=== PATIENT | male | born 1955 | race African-American/Black ===

== ENCOUNTER 2017-12-22 12:06 | Inpatient (IN) | payer MEDICARE, OTHER ==
[~2017-12-22] VITALS: Ht 182.9 cm; Wt 125.2 kg
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
[2017-12-22 12:28] LABS: BASOPHILS # (AUTO) 0.1 /CMM (0.0-0.2); BASOPHILS % (AUTO) 0.7 % (0.0-2.0); EOSINOPHILS % (AUTO) 1.8 % (0.0-6.0); HEMATOCRIT 31 % (39-51); HEMOGLOBIN 10.1 g/dL (13.5-17.5); LYMPHOCYTES # (AUTO) 1.3 /CMM (0.8-4.8); LYMPHOCYTES % (AUTO) 15.7 % (20.0-44.0); MEAN CORPUSCULAR HGB CONC 32 g/dl (31.0-36.0); MEAN CORPUSCULAR VOLUME 75 fL (80-96); MONOCYTES # (AUTO) 0.8 /CMM (0.1-1.30); MONOCYTES % (AUTO) 10.1 % (2.0-12.0); NEUTROPHILS # (AUTO) 5.8 /CMM (1.8-8.9); NEUTROPHILS % (AUTO) 71.7 % (43.0-81.0); PLATELET COUNT (AUTO) 355 /CMM (150-450); RDW COEFFICIENT OF VARIATION 15.4 (11.5-15.0); RED BLOOD CELL COUNT(AUTO) 4.14 MIL/uL (4.5-6.0); WHITE BLOOD COUNT (AUTO) 8.1 K/uL (4.3-11.0)
[2017-12-22] MEDS ORDERED: FUROSEMIDE 40 MG/4 ML VIAL ONE (12:29)
[2017-12-22] MEDS ORDERED: FUROSEMIDE 40 MG/4 ML VIAL IV ONE (12:30)
[2017-12-22 12:39] LABS: CALCIUM, SERUM 8.4 mg/dL (8.5-10.1); CREATININE 1.2 mg/dL (0.6-1.3); POTASSIUM 3.3 mmol/L (3.5-5.1)
[2017-12-22 12:42] LABS: INR 1.17 (0.85-1.15)
[2017-12-22 12:46] LABS: TROPONIN I 0.029 ng/mL (0.00-0.056)
[2017-12-22 12:51] LABS: ALBUMIN 3.1 g/dL (3.4-5.0); BILIRUBIN,DIRECT 0.5 mg/dL (0.0-0.2); BILIRUBIN,TOTAL 1.3 mg/dL (0.2-1.0); TOTAL PROTEIN, SERUM 6.6 g/dL (6.4-8.2)
--- NOTE | 2017-12-22 13:01 | NUR ---
CALLED NURSING ORGANIC CHEMISTRY PROFESSOR AND REQUESTED A TELE RM FOR THIS PT.
--- NOTE | 2017-12-22 13:04 | NUR ---
[facility]ED [facility] CALL AND UBALDO HUNG WAS PAGED.
--- NOTE | 2017-12-22 13:58 | NUR ---
REPORT GIVEN TO JUAN WAGNER FOR [facility] TELE [phone]
--- NOTE | 2017-12-22 14:00 | NUR ---
ADMISSION NOTE RECEIVED PT. PT IS STABLE AND RESTING IN BED. PT BREATHING IS LABORED WITH RR AT 20 BUT O2 SAT WNL. NO C/O PAIN AT THIS TIME. PT MEDICATION CHECKED INTO PHARMACY, RECEIPT LEFT IN CHART. BELONGINGS CHECKED IN WELL. IV ACCESS LOCATED ON LEFT HAND, 22G SL. SAFETY MEASURES IN PLACE, CALL LIGHT WITHIN REACH, WILL CONTINUE TO MONITOR.
[2017-12-22 15:25] VITALS: BP 147/89
[2017-12-22 16:00] VITALS: BP 147/89
[2017-12-22] MEDS ORDERED: MAG HYDROX/AL HYDROX/SIMETH 30 ML UDC PO PRN (16:00)
[2017-12-22] MEDS ORDERED: Z GUARD REMEDY 2 OZ OINT TP PRN (16:00)
[2017-12-22] MEDS ORDERED: MAGNESIUM HYDROXIDE 30 ML UDC PO PRN (16:00)
[2017-12-22] MEDS ORDERED: ONDANSETRON HCL/PF 4 MG/2 ML VIAL IVP PRN (16:00)
[2017-12-22] MEDS ORDERED: ACETAMINOPHEN 325 MG TABLET PO PRN (16:00)
[2017-12-22] MEDS ORDERED: BUMETANIDE INJ 6 MG in IV NS 0.9% 36 ML IV ONE (16:00)
[2017-12-22] MEDS ORDERED: POTASSIUM CHLORIDE 20 MEQ TAB.PRT.SR PO ONE ×2 (17:00→22:00)
--- NOTE | 2017-12-22 18:27 | NUR ---
RN CLOSING NOTE PT IN BED RESTING. A/OX4. RESPIRATIONS REMAIN SOMEWHAT LABORED, O2 SAT WNL. PT IS ON O2 2L VIA NC. ALL PT NEEDS ANTICIPATED AND MET, SAFETY MEASURES IN PLACE, CALL LIGHT WITHIN REACH. WILL CONTINUE TO MONITOR.
--- NOTE | 2017-12-22 19:25 | NUR ---
OYSTER CULLER OPENING NOTES: RECEIVED PT IN BED AND IS AWAKE AND LAYING IN BED. PT ON 2LPM VIA NC. PT BEING INFUSED WITH BUMEX AND 10ML/HR. CALL LIGHT WITHIN PT'S REACH. BED KEPT IN LOW, LOCKED POSITION, AND SIDE RAILS X 2UP. PT REFUSING TO HAVE TELE BOX APPLIED. WILL CONTINUE TO MONITOR PT.
[2017-12-22 20:00] VITALS: BP 127/79
--- NOTE | 2017-12-22 22:53 | NUR ---
GENOMICS SCIENTIST NOTES: PT PULLED OUT IV BY ACCIDENT WHILE ASLEEP. BLEEDING NOTED. APPLIED PRESSURE AND ELEVATED L HAND. STARTED NEW IV ON R HAND #22G. CONNECTED PT BACK TO BUMEX IV. EXPLAINED TO PT TO BE CAUTIOUS AND CALL FOR ASSISTANCE PRN. EXPLAINED TO PT THAT PUMPER GAGER APPRENTICE WILL SEE HIM WELL TOMORROW AND TO NOT HAVE ANYTHING TO EAT OR DRINK PAST MIDNIGHT. PT UNDERSTOOD.
[2017-12-23] VITALS: BP 133/85
[2017-12-23] MEDS: ZOLPIDEM TARTRATE 5 MG TABLET PO PRN (00:31)
--- NOTE | 2017-12-23 00:33 | NUR ---
MEDIA PRODUCTION SUPPORT MANAGER NOTES: PT REQUESTED FOR SLEEPING AID. PT WAS ADMINISTERED AMBIEN 5MG PO. WILL CONTINUE TO MONITOR PT.
[2017-12-23 04:00] VITALS: BP 128/70
--- NOTE | 2017-12-23 05:08 | NUR ---
SUPERVISOR MACHINE WORKERS NOTES: PT VERY NON COMPLIANT. PT KEEPS REMOVING GOWN AND APPEARING NAKED IN ROOM. PROVIDED 6TH GOWN. PT KEEPS SAYING HE IS GOING TO LEAVE. EXPLAINED TO PT THAT HE IS TO BE SEEN BY THE DOCTORS TOMORROW. PT REMOVED TELE BOX AND REFUSING TO BE PUT ON. CHARGE NURSE AWARE.
--- NOTE | 2017-12-23 05:10 | NUR ---
DIRECT SUPPORT PROFESSIONAL NOTES: EXPLAINED TO PT MULTIPLE TIMES ABOUT FLUID RESTRICTION BUT PT KEEPS CREATING A SCENE. PT WALKS OUT OF ROOM ASKING FOR THINGS, TAKING OFF GOWN, TAKING OFF TELE BOX. PT VERY NONCOMPLIANT.
--- NOTE | 2017-12-23 06:28 | NUR ---
BUSINESS INFORMATION CONSULTANT NOTES; PT FOUND WITH IV PULLED OUT. PT CLAIMS TO SAY HE DID NOT PULL IT OUT.
--- NOTE | 2017-12-23 06:45 | NUR ---
BLEACHER LARD CLOSING NOTES: ALL NEEDS WERE ATTENDED AND ANTICIPATED FOR. NEW IV STARTED ON L HAND 22#G AND IS PATENT AND INTACT. WRAPPED KERLIX. INFORMED PT TO BE CAUTIOUS ABOUT NEW IV SITE AND NOT TO PULL IT OUT. PT ASLEEP AT THIS TIME AND ON ROOM AIR. FROM TIME TO TIME, PT REMOVED NASAL CANNULA BUT OK WITHOUT IT. PT ON TELE BOX AND READING SHOWS SR 90. CALL LIGHT WITHIN PT'S REACH. BED KEPT IN LOW, LOCKED POSITION, AND SIDE RAILS X 2UP. WILL ENDORSE TO AM NURSE FOR TAO.
[2017-12-23 07:35] LABS: BASOPHILS % (AUTO) 0.1 % (0.0-2.0); EOSINOPHILS % (AUTO) 1.9 % (0.0-6.0); HEMATOCRIT 33 % (39-51); HEMOGLOBIN 10.4 g/dL (13.5-17.5); LYMPHOCYTES # (AUTO) 1.4 /CMM (0.8-4.8); LYMPHOCYTES % (AUTO) 16.6 % (20.0-44.0); MEAN CORPUSCULAR HGB CONC 31 g/dl (31.0-36.0); MEAN CORPUSCULAR VOLUME 76 fL (80-96); MONOCYTES # (AUTO) 0.7 /CMM (0.1-1.30); MONOCYTES % (AUTO) 8.7 % (2.0-12.0); NEUTROPHILS # (AUTO) 6.2 /CMM (1.8-8.9); NEUTROPHILS % (AUTO) 72.7 % (43.0-81.0); PLATELET COUNT (AUTO) 363 /CMM (150-450); RDW COEFFICIENT OF VARIATION 16.6 (11.5-15.0); RED BLOOD CELL COUNT(AUTO) 4.42 MIL/uL (4.5-6.0); WHITE BLOOD COUNT (AUTO) 8.5 K/uL (4.3-11.0)
--- NOTE | 2017-12-23 07:38 | NUR ---
tele mail messenger: cardio consult seen and examined by dr. chua with new orders. orders acknowledged.
[2017-12-23 07:51] LABS: BILIRUBIN,TOTAL 1.4 mg/dL (0.2-1.0); CALCIUM, SERUM 8.9 mg/dL (8.5-10.1); CREATININE 1.1 mg/dL (0.6-1.3); MAGNESIUM 2.4 mg/dL (1.8-2.4); PHOSPHORUS 2.9 mg/dL (2.5-4.9); POTASSIUM 3.4 mmol/L (3.5-5.1); TOTAL PROTEIN, SERUM 6.7 g/dL (6.4-8.2)
[2017-12-23 08:00] VITALS: BP 146/94
[2017-12-23] MEDS ORDERED: BUMETANIDE INJ 8 MG in IV NS 0.9% 48 ML IV ONE (08:00)
[2017-12-23 08:03] LABS: THYROID STIMULATING HORMONE 1.464 uIU/mL (0.358-3.74)
[2017-12-23 08:35] LABS: MAGNESIUM 1.8 mg/dL (1.8-2.4); PHOSPHORUS 2.9 mg/dL (2.5-4.9); THYROID STIMULATING HORMONE 1.454 uIU/mL (0.358-3.74)
--- NOTE | 2017-12-23 08:44 | NUR ---
tele delivery driver assistant: notes started on bumex at 10ml/hr by rn at this time. will continue to monitor.
[2017-12-23] MEDS ORDERED: ASPI-1152 PO (08:50)
[2017-12-23] MEDS ORDERED: POTA10TA15 PO (08:50)
[2017-12-23] MEDS ORDERED: LISI40TA4 PO (08:50)
[2017-12-23] MEDS ORDERED: CLOP75TA15 PO (08:50)
[2017-12-23] MEDS ORDERED: INSU100I30 SQ (08:50)
[2017-12-23] MEDS ORDERED: BUSP10TA35 PO (08:50)
[2017-12-23] MEDS ORDERED: SPIR25TA PO (08:50)
[2017-12-23] MEDS ORDERED: METF-442 PO (08:50)
[2017-12-23] MEDS ORDERED: FURO40TA5 PO (08:50)
[2017-12-23] MEDS ORDERED: ALPR2TAB2 PO (08:50)
[2017-12-23] MEDS ORDERED: ATOR40TA PO (08:50)
[2017-12-23] MEDS ORDERED: ISOS60TA4 PO (08:50)
[2017-12-23] MEDS ORDERED: GABA-536 PO (08:50)
[2017-12-23] MEDS ORDERED: FOLI1TAB16 PO (08:50)
[2017-12-23] MEDS ORDERED: CARV6.25 PO (08:50)
[2017-12-23] MEDS: LOSARTAN POTASSIUM 50 MG TABLET PO SCH (09:42)
[2017-12-23] MEDS: CARVEDILOL 3.125 MG TABLET PO SCH ×2 (09:42→20:28)
[2017-12-23] MEDS: ENOXAPARIN SODIUM 40 MG/0.4 ML DISP.SYRIN SQ SCH (09:44)
[2017-12-23] MEDS ORDERED: POTASSIUM CHLORIDE 20 MEQ TAB.PRT.SR PO SCH (10:00)
--- NOTE | 2017-12-23 10:00 | NUR ---
tele railroad signal technician: notes pt asking for more foods. snacks provided. instructed to call for assistance. will continue to monitor.
--- NOTE | 2017-12-23 13:00 | NUR ---
m/s supervisor painting shipyard: md visit seen by dr. martinez at this time. reminded md re: pt's home meds hasn't been reconciled yet.
--- NOTE | 2017-12-23 14:00 | NUR ---
m/s senior c software engineer: notes pt still hungry and wants more food. snacks provided. pt easily irritated when he doesn't get what he wants. emotional support rendered. 1:1 intervention provided prn.
--- NOTE | 2017-12-23 15:15 | NUR ---
m/s info analyst: notes pt called and insisted that he wants to have an electric chair when he gets discharge. informed pt that i will let case management know re: his request. ashanti (case management) notified and made aware, stated, "i will see him after the meeting and talk to him."
[2017-12-23 16:00] VITALS: BP 144/97
--- NOTE | 2017-12-23 16:00 | NUR ---
m/s cooker meal: notes f/u made to ashanti (neymar) re: pt's request for electric wheelchair, stated, "i don't think he qualifies, but i will talk to him." pt made aware. also f/u made to dr. martinez re: home medications hasn't been reconciled yet. will continue to monitor.
[2017-12-23] MEDS: oxyCODONE IR immediate release 5 MG PO PRN (18:32)
--- NOTE | 2017-12-23 18:32 | NUR ---
m/s taker away: notes c/o 05/11 leonie leg pain, medicated with oxy ir 15mg po as ordered. pt still insisting that he qualifies for electric wheelchair and demanded to talk to case management. informed pt that case management is aware of request and will f/u tomorrow. pt easily irritated. instructed to call for assistance. will continue to monitor.
--- NOTE | 2017-12-23 19:10 | NUR ---
m/s deputy chief executive: notes report given to jose angel (jasiel) for continuity of care.
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
--- NOTE | 2017-12-23 19:58 | NUR ---
RECIEVED MR CHA ALERT AND ORIENTATED. VERBALIZES HIS NEEDS. HIS ONLY REQUISTE WAS THAT I SPEAK TO SOME ONE ABOUT GETTING HIS ELECTRIC WHEELCHAIR. DAY SHIFT NURSE STATED THE REQUISTE WAS PLACED BUT NO ONE HAS SEN HIM REGARDING THIS.
[2017-12-23 20:00] VITALS: BP 122/72
[2017-12-23 20:08] VITALS: BP 122/72
--- NOTE | 2017-12-24 04:54 | NUR ---
CLOSING NOTES: ALERT AND ORIENTATED, SPEECH CLEAR, VERBALIZES HIS NEEDS. HIS CONCERN IS HE WANTS THE DOCTOR TO ORDER HM AN ELECTRIC WHEELCHAIR. SOCIAL SERVICE AWARE OF HIS REQUISTE. LARGE SNACK CONSUMED 100%. AMBULATED TO THE BATHROOM VOIDED, REFUSING THE ASSIST OF THE NURSE. STATES "I CAN DO IT'. NO SOB WITH AMBULATING TO THE BATHROOM, OR WHEN ASLEEP, LUNGS CLEAR VIA AUSCULTATION
[2017-12-24 07:19] LABS: EOSINOPHILS % (AUTO) 2.4 % (0.0-6.0); HEMATOCRIT 34 % (39-51); HEMOGLOBIN 10.4 g/dL (13.5-17.5); LYMPHOCYTES # (AUTO) 1.9 /CMM (0.8-4.8); LYMPHOCYTES % (AUTO) 21.3 % (20.0-44.0); MEAN CORPUSCULAR HGB CONC 31 g/dl (31.0-36.0); MEAN CORPUSCULAR VOLUME 76 fL (80-96); MONOCYTES # (AUTO) 0.8 /CMM (0.1-1.30); MONOCYTES % (AUTO) 9.4 % (2.0-12.0); NEUTROPHILS % (AUTO) 66.9 % (43.0-81.0); PLATELET COUNT (AUTO) 367 /CMM (150-450); RDW COEFFICIENT OF VARIATION 16.5 (11.5-15.0); RED BLOOD CELL COUNT(AUTO) 4.39 MIL/uL (4.5-6.0); WHITE BLOOD COUNT (AUTO) 8.9 K/uL (4.3-11.0)
[2017-12-24 07:24] LABS: CALCIUM, SERUM 8.5 mg/dL (8.5-10.1); CREATININE 1.3 mg/dL (0.6-1.3); MAGNESIUM 1.9 mg/dL (1.8-2.4); PHOSPHORUS 3.6 mg/dL (2.5-4.9); POTASSIUM 3.1 mmol/L (3.5-5.1)
[2017-12-24 08:00] VITALS: BP 148/98
--- NOTE | 2017-12-24 08:00 | NUR ---
MS RN RECEIVED ON BED,AWAKE,ALERT,ORIENTED X3, NOT IN ANY FORM OF DISTRESS, RESPIRATIONS EVEN AND UNLABORED,NO SOB NOTED, DENIES PAIN AT THIS TIME, WILL MONITOR PATIENT'S CONDITION.
[2017-12-24] MEDS ORDERED: FUROSEMIDE 40 MG TABLET PO SCH (09:00)
[2017-12-24] MEDS: CARVEDILOL 3.125 MG TABLET PO SCH ×2 (09:00→21:12)
[2017-12-24] MEDS ORDERED: BUMETANIDE INJ 8 MG in IV NS 0.9% 48 ML IV ONE (09:00)
--- NOTE | 2017-12-24 09:00 | NUR ---
MS MARTINEZ BREAKFAST SERVED,DUE MEDS GIVEN,TOLERATED WELL.
[2017-12-24] MEDS: ASPIRIN EC 81 MG TABLET.DR PO SCH (09:20)
[2017-12-24] MEDS: POTASSIUM CHLORIDE 20 MEQ TAB.PRT.SR PO SCH ×3 (09:21→17:52)
[2017-12-24] MEDS: busPIRone 5 MG TABLET PO SCH (09:21)
[2017-12-24] MEDS: CLOPIDOGREL BISULFATE 75 MG TABLET PO SCH (09:21)
[2017-12-24] MEDS: FOLIC ACID 1 MG TABLET PO SCH (09:21)
[2017-12-24] MEDS: LOSARTAN POTASSIUM 50 MG TABLET PO SCH (09:22)
[2017-12-24] MEDS: ENOXAPARIN SODIUM 40 MG/0.4 ML DISP.SYRIN SQ SCH (09:28)
--- NOTE | 2017-12-24 11:00 | NUR ---
MS RN PATIENT REMOVED IV ACCIDENTALLY,NEW IV AT LEFT HAND G 22 INSERTED W/ GOOD VENOUS RETURN.
[2017-12-24] MEDS: CARVEDILOL 6.25 MG TABLET PO SCH ×2 (14:07→17:52)
[2017-12-24 16:00] VITALS: BP 132/74
--- NOTE | 2017-12-24 16:00 | NUR ---
MS RN PATIENT REMOVED IV AGAIN, NEW ONE INSERTED AT LEFT HAND G 22.
--- NOTE | 2017-12-24 18:26 | NUR ---
MS RN CALLED UBALDO ABOUT THE FERLICIT, WAS CALLED EARLIER TO [place], STILL NOT HERE.
--- NOTE | 2017-12-24 18:26 | NUR ---
MS RN ON BED, NO DISTRESS NOTED.
--- NOTE | 2017-12-24 19:30 | NUR ---
MS/ASSEMBLER ADJUSTER; RECEIVED PT IN BED AWAKE, ALERT AND VERBALLY RESPONSIVE. BREATHINGF
--- NOTE | 2017-12-24 19:30 | NUR ---
MS/COMPUTED TOMOGRAPHY TECHNOLOGIST; RECEIVED PT IN BED AWAKE, ALERT AND ORIENTED X 3-4. BREATHING NON LABORED. DENIES PAIN. HL INTACT ON LT HAND WITH BUMEX IV ON PROGRESS. BED ON LOWER POSITION AND LOCKED FOR SAFETY. SIDE RAILS X2 UPPER PART OF BED ARE UP FOR SAFETY. PT REMINDED MUST CALL FOR HELP WHEN HE WANTS TO GO TO THE BATHROOM . CALL LIGHT AND URINAL WITHIN REACH. DENIES PAIN. WILL CONTINUE TO MONITOR.
[2017-12-24 20:00] VITALS: BP 116/69
[2017-12-24] MEDS: GABAPENTIN 400 MG CAPSULE PO SCH (21:44)
[2017-12-24] MEDS: ATORVASTATIN 40 MG TABLET PO SCH (21:44)
[2017-12-24] MEDS: SOD FERRIC GLUC 125 MG in IV NS 0.9% 100 ML IV SCH (22:28)
[2017-12-24] MEDS: ZOLPIDEM TARTRATE 5 MG TABLET PO PRN (22:30)
--- NOTE | 2017-12-25 01:20 | NUR ---
MS/STREET SWEEPER; NOTED PT GOT OUT OF BED AND WALKED TOWARDS THE HIS ROOM DOOR AND SAYING I WANT TO LEAVE A MESSAGE APPROACHED BY THE ENDS DOWN CHECKER. PT ASSISTED THE PT TO HIS BED , BED LINENS CHANGED.
--- NOTE | 2017-12-25 01:30 | NUR ---
MS/CORE DROPPER; NOTED HL IS OUT / PT PULLED OUT. NEW HL INSERTED ANGIO CATH # 22. WRAPPED WITH KERLIX AND PT REMINDED NOT TO REMOVE IT. AT THIS TIME PT IN BED. NOTED PT APPEARED LIKE CONFUSED TALKING TO HIMSELF ABOUT MONEY.
--- NOTE | 2017-12-25 06:57 | NUR ---
MS/COAT CHECKER; SLEPT FAIRLY. BREATHING NON LABORED. VOIDING A LOT TO A CLEAR YELLOW URINE ,HE USED THE URINAL AND BRP ALSO. DENIES PAIN. WILL CONTINUE TO MONITOR. WILL ENDORSE TO THE DAY SHIFT NURSE FOR CONTINUITY OF CARE.
[2017-12-25 08:00] VITALS: BP 129/90
--- NOTE | 2017-12-25 08:04 | NUR ---
MS RN RECEIVED ON BED, AWAKE,ALERT,ORIENTED X4,NOT IN ANY FORM OF DISTRESS,RESPIRATIONS EVEN AND UNLABORED,NO SOB NOTED, LUNGS HAVE RONCHI BILATERALLY,ABDOMEN SOFT,POSITIVE BOWEL SOUNDS,DENIES PAIN AT THIS TIME.PATIENT IS NONCOMPLIANT, IV REMOVED AGAIN ,WILL MONITOR PATIENT.
[2017-12-25 08:20] LABS: ALBUMIN 2.9 g/dL (3.4-5.0); BILIRUBIN,TOTAL 0.7 mg/dL (0.2-1.0); CALCIUM, SERUM 8.5 mg/dL (8.5-10.1); CREATININE 1.3 mg/dL (0.6-1.3); MAGNESIUM 2.1 mg/dL (1.8-2.4); PHOSPHORUS 3.2 mg/dL (2.5-4.9); POTASSIUM 3.4 mmol/L (3.5-5.1); TOTAL PROTEIN, SERUM 6.9 g/dL (6.4-8.2)
[2017-12-25 08:22] LABS: BASOPHILS % (AUTO) 0.3 % (0.0-2.0); EOSINOPHILS % (AUTO) 2.6 % (0.0-6.0); HEMATOCRIT 36 % (39-51); HEMOGLOBIN 11.4 g/dL (13.5-17.5); LYMPHOCYTES # (AUTO) 1.3 /CMM (0.8-4.8); LYMPHOCYTES % (AUTO) 14.5 % (20.0-44.0); MEAN CORPUSCULAR HGB CONC 32 g/dl (31.0-36.0); MEAN CORPUSCULAR VOLUME 76 fL (80-96); MONOCYTES % (AUTO) 10.9 % (2.0-12.0); NEUTROPHILS # (AUTO) 6.6 /CMM (1.8-8.9); NEUTROPHILS % (AUTO) 71.7 % (43.0-81.0); PLATELET COUNT (AUTO) 389 /CMM (150-450); RDW COEFFICIENT OF VARIATION 15.1 (11.5-15.0); RED BLOOD CELL COUNT(AUTO) 4.74 MIL/uL (4.5-6.0); WHITE BLOOD COUNT (AUTO) 9.1 K/uL (4.3-11.0)
[2017-12-25] MEDS: CARVEDILOL 6.25 MG TABLET PO SCH ×2 (09:00→17:00)
--- NOTE | 2017-12-25 09:50 | NUR ---
MS RN BREAKFAST SERVED,DUE MEDS GIVEN,TOLERATED WELL. PATIENT IS NON COMPLIANT ON FLUID RESTRICTION BUT STILL INSISTING ON DRINKING FLUID A LOT.
[2017-12-25] MEDS: busPIRone 5 MG TABLET PO SCH (09:52)
[2017-12-25] MEDS: CLOPIDOGREL BISULFATE 75 MG TABLET PO SCH (09:53)
[2017-12-25] MEDS: LOSARTAN POTASSIUM 50 MG TABLET PO SCH (09:53)
[2017-12-25] MEDS: ASPIRIN EC 81 MG TABLET.DR PO SCH (09:53)
[2017-12-25] MEDS: FOLIC ACID 1 MG TABLET PO SCH (09:53)
[2017-12-25] MEDS: POTASSIUM CHLORIDE 20 MEQ TAB.PRT.SR PO SCH ×3 (09:53→17:44)
[2017-12-25] MEDS: CARVEDILOL 3.125 MG TABLET PO SCH ×2 (09:56→22:20)
[2017-12-25] MEDS: ENOXAPARIN SODIUM 40 MG/0.4 ML DISP.SYRIN SQ SCH (09:58)
[2017-12-25] MEDS ORDERED: BUMETANIDE INJ 8 MG in IV NS 0.9% 48 ML IV ONE (10:00)
[2017-12-25] MEDS: oxyCODONE IR immediate release 5 MG PO PRN (10:29)
[2017-12-25 16:00] VITALS: BP 126/78
[2017-12-25] MEDS: SOD FERRIC GLUC 125 MG in IV NS 0.9% 100 ML IV SCH (17:43)
--- NOTE | 2017-12-25 19:05 | NUR ---
MS RN ON BED, NO CHANGE OF CONDITION.ALL NEEDS ATTENDED.
--- NOTE | 2017-12-25 19:30 | NUR ---
MS/OPTICAL GLASS ETCHER; RECEIVED PT IN BED AWAKE, ALERT AND ORIENTED. BREATHING NON LABORED. HL INTACT ON RWA WITH BUMEX IVF ON PROGRESS. BED ON LOWER POSITION AND LOCKED FOR SAFETY. SIDE X2 ARE UP FOR SAFETY. WILL CONTINUE TO MONITOR. CALL LIGHT WITHIN REACH. BOTH LEGS WITH SOME SWELLING .
[2017-12-25 20:00] VITALS: BP 116/76
[2017-12-25] MEDS: ATORVASTATIN 40 MG TABLET PO SCH (22:20)
[2017-12-25] MEDS: GABAPENTIN 400 MG CAPSULE PO SCH (22:21)
--- NOTE | 2017-12-25 22:40 | NUR ---
MS/TRANSITIONAL STUDIES INSTRUCTOR; PT ENDORSED TO JUAN MONREAL FOR CONTINUITY OF CARE.
[2017-12-26] MEDS: oxyCODONE IR immediate release 5 MG PO PRN (00:14)
[2017-12-26] MEDS: ZOLPIDEM TARTRATE 5 MG TABLET PO PRN (00:17)
[2017-12-26 06:35] LABS: BASOPHILS % (AUTO) 0.6 % (0.0-2.0); EOSINOPHILS % (AUTO) 3.7 % (0.0-6.0); HEMATOCRIT 36 % (39-51); HEMOGLOBIN 11.5 g/dL (13.5-17.5); LYMPHOCYTES # (AUTO) 1.8 /CMM (0.8-4.8); LYMPHOCYTES % (AUTO) 23.4 % (20.0-44.0); MEAN CORPUSCULAR HGB CONC 32 g/dl (31.0-36.0); MEAN CORPUSCULAR VOLUME 76 fL (80-96); MONOCYTES # (AUTO) 0.8 /CMM (0.1-1.30); MONOCYTES % (AUTO) 11.2 % (2.0-12.0); NEUTROPHILS # (AUTO) 4.6 /CMM (1.8-8.9); NEUTROPHILS % (AUTO) 61.1 % (43.0-81.0); PLATELET COUNT (AUTO) 369 /CMM (150-450); RDW COEFFICIENT OF VARIATION 15.4 (11.5-15.0); RED BLOOD CELL COUNT(AUTO) 4.75 MIL/uL (4.5-6.0); WHITE BLOOD COUNT (AUTO) 7.5 K/uL (4.3-11.0)
[2017-12-26 06:37] LABS: BILIRUBIN,TOTAL 0.6 mg/dL (0.2-1.0); CALCIUM, SERUM 8.8 mg/dL (8.5-10.1); CREATININE 1.2 mg/dL (0.6-1.3); MAGNESIUM 2.2 mg/dL (1.8-2.4); POTASSIUM 3.8 mmol/L (3.5-5.1); TOTAL PROTEIN, SERUM 7.1 g/dL (6.4-8.2)
--- NOTE | 2017-12-26 06:38 | NUR ---
RN CLOSING NOTE PT IN BED RESTING. A/OX4. RESPIRATIONS EVEN AND UNLABORED, NO ACUTE DISTRESS NOTED, NO COMPLAIN OF PAIN/DISCOMFORT AT THIS TIME, PT NEEDS ANTICIPATED AND MET, SAFETY MEASURES IN PLACE, CALL LIGHT WITHIN REACH. WILL ENDORSE TO NEXT SHIFT NURSE FOR TAO.
--- NOTE | 2017-12-26 07:50 | NUR ---
RN OPENING NOTES RECEIVED PT. IN BED SLEEPING PT. IS BREATHING UNLABORED, AND EVENLY ON ROOM AIR. NO S/S OF ACUTE DISTRESS. PER NURSE PT. HAS NO IV ACCESS AT THIS TIME. BED IS IN LOWEST, AND LOCKED POSITION. 2 SIDE RAILS UP, AND CALL LIGHT WITHIN REACH. ALL NEEDS MET. WILL CONTINUE TO ASSESS AND MONITOR.
[2017-12-26 08:33] VITALS: BP 108/68
[2017-12-26] MEDS: CARVEDILOL 3.125 MG TABLET PO SCH ×2 (09:00→20:59)
[2017-12-26] MEDS: busPIRone 5 MG TABLET PO SCH (09:06)
[2017-12-26] MEDS: FOLIC ACID 1 MG TABLET PO SCH (09:07)
[2017-12-26] MEDS: ASPIRIN EC 81 MG TABLET.DR PO SCH (09:07)
[2017-12-26] MEDS: LOSARTAN POTASSIUM 50 MG TABLET PO SCH (09:12)
--- NOTE | 2017-12-26 09:22 | NUR ---
RN NOTES 2 DIFFERENT DOSES OF COREG WERE ORDERED. CALLED PHARMACY TO VERIFY WHICH DOSE TO ADMINISTER, PER PHARMACY COREG DOSE ORDERED ON 12/23 WAS GOING TO BE DISCONTINUED. THEN, ADMINISTERED PT. 6.125 MG OF COREG. NEW ORDER FOR COREG WAS ADJUSTED TO 3.125 MG.
[2017-12-26] MEDS: CLOPIDOGREL BISULFATE 75 MG TABLET PO SCH (09:30)
[2017-12-26] MEDS ORDERED: BUMETANIDE INJ 8 MG in IV NS 0.9% 48 ML IV ONE (09:30)
[2017-12-26] MEDS: ENOXAPARIN SODIUM 40 MG/0.4 ML DISP.SYRIN SQ SCH (09:31)
[2017-12-26] MEDS ORDERED: POTASSIUM CHLORIDE 20 MEQ TAB.PRT.SR PO SCH (10:00)
[2017-12-26] MEDS ORDERED: NA PHOS,M-B/NA PHOS,DI-BA 1 EA ENEMA RC PRN (13:00)
[2017-12-26] MEDS ORDERED: PANTOPRAZOLE 40 MG VIAL IV SCH (13:00)
[2017-12-26] MEDS ORDERED: MAGNESIUM CITRATE 296 ML BOTTLE PO ONE (13:00)
[2017-12-26] MEDS ORDERED: PEG 3350/NA SULF,BICARB,CL/KCL 4,000 ML BOTTLE PO ONE (13:00)
[2017-12-26] MEDS: SOD FERRIC GLUC 125 MG in IV NS 0.9% 100 ML IV SCH (14:35)
[2017-12-26 16:16] VITALS: BP 120/76
--- NOTE | 2017-12-26 17:00 | NUR ---
RN NOTES PT.'S EGD, AND COLONOSCOPY ARE PLANNED FOR FRIDAY 12/29. CONSENT FORMS WERE SIGNED AND PLACED IN CHART. PT. WAS SEEN BY KASSY RANGEL NP REGARDING PROCEDURES.
[2017-12-26 19:12] LABS: OCCULT BLOOD STOOL NEGATIVE (NEGATIVE)
--- NOTE | 2017-12-26 19:30 | NUR ---
RN OPENING NOTES PT AWAKE AND RESTING IN BED. NO COMPLAINTS OF SOB, DISTRESS OR PAIN AT THIS TIME. PT HAS A RIGHT WRIST #22 IV INTACT AND PATENT. SAFETY PRECAUTIONS IN PLACE. BED IN LOWEST LOCKED POSITION, X2 SIDERAILS UP, CALL LIGHT WITHIN REACH. WILL CONTINUE TO MONITOR.
--- NOTE | 2017-12-26 19:30 | NUR ---
RN CLOSING NOTES PT. IS IN BED A&OX3. PT. IS BREATHING UNLABORED, AND EVENLY ON ROOM AIR. NO S/S OF ACUTE DISTRESS. IV ACCESS ON RIGHT WRIST GAUGE 22 PATENT AND INTACT. BED IS IN LOWEST, AND LOCKED POSITION. 2 SIDE RAILS UP, AND CALL LIGHT WITHIN REACH. ALL NEEDS MET. WILL ENDORSE TO NURSE.
[2017-12-26 20:00] VITALS: BP 108/61
[2017-12-26] MEDS: ATORVASTATIN 40 MG TABLET PO SCH (21:00)
[2017-12-26] MEDS: GABAPENTIN 400 MG CAPSULE PO SCH (21:00)
[2017-12-27] MEDS: ZOLPIDEM TARTRATE 5 MG TABLET PO PRN (01:40)
--- NOTE | 2017-12-27 01:40 | NUR ---
RN NOTES PT REQUESTED PRN SLEEP MEDICATION. WILL ADMINISTER PRN AMBIEN 5MG PO AND CONTINUE TO MONITOR.
--- NOTE | 2017-12-27 06:54 | NUR ---
RN CLOSING NOTES PT AWAKE AND RESTING IN BED. NO COMPLAINTS OF SOB, DISTRESS OR PAIN OVERNIGHT. PT HAS A RIGHT WRIST #22 IV INTACT AND PATENT. ALL PATIENT NEEDS MET. SAFETY PRECAUTIONS IN PLACE. BED IN LOWEST LOCKED POSITION, X2 SIDE RAILS UP, CALL LIGHT WITHIN REACH. WILL ENDORSE TO DAY SHIFT NURSE FOR CONTINUITY OF CARE.
--- NOTE | 2017-12-27 07:37 | NUR ---
MS/RN OPENING NOTE PATIENT IN BED IN STABLE CONDITION. A/O X 3. NO SIGNS OF ACUTE DISTRESS. NO COMPLAIN OF PAIN OR DISCOMFORT. ALL NEEDS ATTENDED TO. CALL LIGHT WITHIN REACH. WILL CONTINUE TO MONITOR TO ENSURE SAFETY.
[2017-12-27 08:00] VITALS: BP 122/72
[2017-12-27] MEDS: LOSARTAN POTASSIUM 50 MG TABLET PO SCH (08:30)
[2017-12-27] MEDS: ASPIRIN EC 81 MG TABLET.DR PO SCH (08:30)
[2017-12-27] MEDS: POTASSIUM CHLORIDE 20 MEQ TAB.PRT.SR PO SCH (08:30)
[2017-12-27] MEDS: CLOPIDOGREL BISULFATE 75 MG TABLET PO SCH (08:30)
[2017-12-27] MEDS: busPIRone 5 MG TABLET PO SCH (08:31)
[2017-12-27] MEDS: FOLIC ACID 1 MG TABLET PO SCH (08:31)
[2017-12-27] MEDS: CARVEDILOL 3.125 MG TABLET PO SCH ×2 (08:31→21:48)
[2017-12-27] MEDS: ENOXAPARIN SODIUM 40 MG/0.4 ML DISP.SYRIN SQ SCH (08:34)
[2017-12-27] MEDS: PANTOPRAZOLE 40 MG TABLET.DR PO SCH (08:37)
[2017-12-27] MEDS ORDERED: FUROSEMIDE 40 MG TABLET PO SCH (09:00)
[2017-12-27 11:40] LABS: BASOPHILS % (AUTO) 0.1 % (0.0-2.0); EOSINOPHILS % (AUTO) 2.7 % (0.0-6.0); HEMATOCRIT 37 % (39-51); HEMOGLOBIN 11.7 g/dL (13.5-17.5); LYMPHOCYTES # (AUTO) 1.9 /CMM (0.8-4.8); LYMPHOCYTES % (AUTO) 22.3 % (20.0-44.0); MEAN CORPUSCULAR HGB CONC 31 g/dl (31.0-36.0); MEAN CORPUSCULAR VOLUME 75 fL (80-96); MONOCYTES # (AUTO) 0.9 /CMM (0.1-1.30); MONOCYTES % (AUTO) 10.7 % (2.0-12.0); NEUTROPHILS # (AUTO) 5.3 /CMM (1.8-8.9); NEUTROPHILS % (AUTO) 64.2 % (43.0-81.0); PLATELET COUNT (AUTO) 355 /CMM (150-450); RDW COEFFICIENT OF VARIATION 16.9 (11.5-15.0); RED BLOOD CELL COUNT(AUTO) 4.96 MIL/uL (4.5-6.0); WHITE BLOOD COUNT (AUTO) 8.3 K/uL (4.3-11.0)
[2017-12-27 11:54] LABS: ALBUMIN 2.9 g/dL (3.4-5.0); BILIRUBIN,TOTAL 0.6 mg/dL (0.2-1.0); CALCIUM, SERUM 8.7 mg/dL (8.5-10.1); CREATININE 1.1 mg/dL (0.6-1.3); MAGNESIUM 2.2 mg/dL (1.8-2.4); PHOSPHORUS 2.2 mg/dL (2.5-4.9); POTASSIUM 3.5 mmol/L (3.5-5.1); TOTAL PROTEIN, SERUM 7.2 g/dL (6.4-8.2)
[2017-12-27] MEDS ORDERED: K PHOS NEUTRAL 250 MG TABLET PO ONE (14:30)
[2017-12-27] MEDS: SOD FERRIC GLUC 125 MG in IV NS 0.9% 100 ML IV SCH (14:58)
[2017-12-27 16:00] VITALS: BP 124/75
--- NOTE | 2017-12-27 18:27 | NUR ---
MS/RN CLOSING NOTE PATIENT IN BED IN STABLE CONDITION. A/O X 3 WITH EPISODES OF FORGETFULNESS AND CONFUSION. NO SIGNS OF ACUTE DISTRESS. NO COMPLAIN OF PAIN OR DISCOMFORT. ALL NEEDS ATTENDED TO. CALL LIGHT WITHIN REACH. WILL ENDORSE TO NEXT SHIFT FOR CONTINUITY OF CARE.
--- NOTE | 2017-12-27 19:40 | NUR ---
MS RN OPENING NOTES PT AWAKE AND RESTING IN BED. NO COMPLAINTS OF SOB, DISTRESS OR PAIN AT THIS TIME. TALKATIVE & RESPONSIVE. PT HAS A RIGHT WRIST #22 IV INTACT AND PATENT. SAFETY PRECAUTIONS IN PLACE. BED IN LOW LOCKED POSITION, X 2 SIDE RAILS UP, CALL LIGHT WITHIN REACH. WILL CONTINUE TO MONITOR.
[2017-12-27 20:00] VITALS: BP 140/83
[2017-12-27 20:02] VITALS: BP 140/83
[2017-12-27] MEDS: GABAPENTIN 400 MG CAPSULE PO SCH (21:48)
[2017-12-27] MEDS: ATORVASTATIN 40 MG TABLET PO SCH (21:48)
[2017-12-27] MEDS: ALPRAZOLAM 1 MG TABLET PO PRN (23:22)
--- NOTE | 2017-12-27 23:22 | NUR ---
PRN XANAX GIVEN PT NOTED TO BE VERY ANXIOUS, LOUD, GETTING UPSET @ STAFF, TRIED TO CLAM HIM DOWN BY GIVING SNACK & SMALL AMOUNT OF FLUID SINCE PT IS ON STRICT I & O, BUT PT CONTINUED TO BE ANXIOUS. PRN XANAX GIVEN ORDERED BY . WILL REASSESS FOR EFFECTIVENESS. REMINDED PT TO TRY TO GO TO SLEEP TO GET SOME REST, PT AGREED & STAYED IN BED SO FAR. WILL MONITOR CLOSELY FOR SAFETY & COMFORT.
--- NOTE | 2017-12-28 01:10 | NUR ---
MS RN NOTES PT NOTED TO BE SLEEPING INTERMITTENTLY, GOT UP FROM BED, WALKED AROUND IN THE HALLWAY WITH HELP FOR SAFETY. ASSISTED BACK TO BED WITH SAFETY MEASURES IN PLACE. WILL CONTINUE TO MONITOR.
--- NOTE | 2017-12-28 05:00 | NUR ---
MS RN NOTES PT NOTED TO BE SLEEPING COMFORTABLY IN BED. FREQUENT VISUAL CHECKS BEING DONE.
[2017-12-28] MEDS ORDERED: IPRATROPIUM NEB FS 0.5 MG/2.5 ML AMPUL.NEB ONE (06:19)
[2017-12-28] MEDS ORDERED: ALBUTEROL FS 2.5 MG/3 ML VIAL.NEB ONE (06:19)
--- NOTE | 2017-12-28 06:38 | NUR ---
MS RN CLOSING NOTES PT IS IN BED A & O X 3. SLEEPING @ THIS TIME, BREATHING UNLABORED, AND EVENLY ON ROOM AIR. NO S/S OF ACUTE DISTRESS. IV ACCESS ON RIGHT WRIST GAUGE 22 PATENT AND INTACT. BED IS IN LOWEST, AND LOCKED POSITION. 2 SIDE RAILS UP, AND CALL LIGHT WITHIN REACH. ALL NEEDS ATTENDED TO & MET. ASSISTED WITH ACTIVITIES NEEDED. WILL ENDORSE TO AM NURSE FOR CONTINUITY OF CARE.
--- NOTE | 2017-12-28 07:20 | NUR ---
MSRN OPENING NOTES. PT RECEIVED A&0X3, AWAKE AND RESTING IN BED. PT TOLERATING ROOM AIR AND DENIES SOB AND IS WITHOUT S/S OF RESP DISTRESS. PT DENIES PAIN AT THIS TIME. PT WITH IVC AT R WRIST G#22 INTACT AND SALINE FLUSH PATENT. BED IN LOWEST LOCKED POSITION WITH HANDRAILSX2 AND CALL VILLALPANDO WITHIN REACH, BED ALARM ENGAGED. PT BRIEFED ON TODAY'S POC AND IS WITHOUT CONCERN OR COMPLAINT AT THIS TIME.
[2017-12-28 07:52] LABS: BASOPHILS % (AUTO) 0.1 % (0.0-2.0); EOSINOPHILS % (AUTO) 4.7 % (0.0-6.0); HEMATOCRIT 37 % (39-51); HEMOGLOBIN 11.6 g/dL (13.5-17.5); LYMPHOCYTES # (AUTO) 2.1 /CMM (0.8-4.8); LYMPHOCYTES % (AUTO) 25.3 % (20.0-44.0); MEAN CORPUSCULAR HGB CONC 31 g/dl (31.0-36.0); MEAN CORPUSCULAR VOLUME 75 fL (80-96); MONOCYTES # (AUTO) 0.9 /CMM (0.1-1.30); MONOCYTES % (AUTO) 10.4 % (2.0-12.0); NEUTROPHILS # (AUTO) 4.9 /CMM (1.8-8.9); NEUTROPHILS % (AUTO) 59.5 % (43.0-81.0); PLATELET COUNT (AUTO) 339 /CMM (150-450); RDW COEFFICIENT OF VARIATION 16.5 (11.5-15.0); RED BLOOD CELL COUNT(AUTO) 4.94 MIL/uL (4.5-6.0); WHITE BLOOD COUNT (AUTO) 8.2 K/uL (4.3-11.0)
[2017-12-28 08:00] VITALS: BP 125/87
[2017-12-28 08:13] LABS: CALCIUM, SERUM 8.4 mg/dL (8.5-10.1); MAGNESIUM 2.2 mg/dL (1.8-2.4); POTASSIUM 3.6 mmol/L (3.5-5.1)
[2017-12-28] MEDS: PANTOPRAZOLE 40 MG TABLET.DR PO SCH (08:39)
[2017-12-28] MEDS: LOSARTAN POTASSIUM 50 MG TABLET PO SCH (08:39)
[2017-12-28] MEDS: CLOPIDOGREL BISULFATE 75 MG TABLET PO SCH (08:39)
[2017-12-28] MEDS: FOLIC ACID 1 MG TABLET PO SCH (08:40)
[2017-12-28] MEDS: POTASSIUM CHLORIDE 20 MEQ TAB.PRT.SR PO SCH (08:40)
[2017-12-28] MEDS: CARVEDILOL 3.125 MG TABLET PO SCH ×2 (08:40→20:52)
[2017-12-28] MEDS: busPIRone 5 MG TABLET PO SCH (08:41)
[2017-12-28] MEDS: FUROSEMIDE 40 MG TABLET PO SCH (08:41)
[2017-12-28] MEDS: ASPIRIN EC 81 MG TABLET.DR PO SCH (08:42)
[2017-12-28] MEDS: ENOXAPARIN SODIUM 40 MG/0.4 ML DISP.SYRIN SQ SCH (08:43)
[2017-12-28] MEDS ORDERED: PEG 3350/NA SULF,BICARB,CL/KCL 4,000 ML BOTTLE PO ONE (12:00)
[2017-12-28] MEDS ORDERED: MAGNESIUM CITRATE 296 ML BOTTLE PO ONE (12:00)
[2017-12-28] MEDS ORDERED: NA PHOS,M-B/NA PHOS,DI-BA 1 EA ENEMA RC PRN (12:00)
--- NOTE | 2017-12-28 13:00 | NUR ---
MSRN NOTES. PT REFUSING EGD AND COLONOSCOPY. GI AND PRIMARY DRILLING CONTRACTOR AWARE.
[2017-12-28 16:00] VITALS: BP 125/77
[2017-12-28] MEDS: SOD FERRIC GLUC 125 MG in IV NS 0.9% 100 ML IV SCH (16:03)
--- NOTE | 2017-12-28 18:50 | NUR ---
MSRN NOTES. PT REPORTS GETTING BLOOD NOSE AFTER BLOWING IT. PRESSURE APPLIED AND BLEEDING STOPPED. PT WITHOUT CONCERN OR COMPLAINT.
--- NOTE | 2017-12-28 19:28 | NUR ---
MSRN CLOSING NOTES. PT REMAINS A&0X3. PT TOLERATING ROOM AIR AND DENIES PAIN AT THIS TIME. PT WITH IVC AT L WRIST G#22 INTACT SL. BED IN LOWEST LOCKED POSITION WITH HANDRAILSX2 AND CALL VILLALPANDO WITHIN REACH. ALL DAY NURSE DUTIES ATTENDED TO AND OT IS WITHOUT CONCERN OR COMPLAINT. WILL ENDORSE TO NIGHT NURSE FOR TAO.
--- NOTE | 2017-12-28 19:30 | NUR ---
MS RN OPENING NOTES. PT RECEIVED A&0X3, AWAKE AND RESTING IN BED. PT TOLERATING ROOM AIR AND DENIES SOB AND IS WITHOUT S/S OF RESP DISTRESS. PT DENIES PAIN AT THIS TIME. PT WITH IVC AT R WRIST G#22 INTACT AND SALINE FLUSH PATENT. BED IN LOWEST LOCKED POSITION WITH HANDRAILSX2 AND CALL VILLALPANDO WITHIN REACH, BED ALARM ENGAGED. WILL CONTINUE TO MONITOR.
[2017-12-28 20:00] VITALS: BP 141/86
[2017-12-28] MEDS: ALPRAZOLAM 1 MG TABLET PO PRN (20:50)
[2017-12-28] MEDS: GABAPENTIN 400 MG CAPSULE PO SCH (20:54)
[2017-12-28] MEDS: ATORVASTATIN 40 MG TABLET PO SCH (20:55)
[2017-12-28] MEDS: oxyCODONE IR immediate release 5 MG PO PRN (21:22)
[2017-12-28 22:00] VITALS: BP 141/86
--- NOTE | 2017-12-29 07:11 | NUR ---
MS RN NOTE PATIENT STABLE. ALL NEEDS MET AND ATTENDED TO. WILL ENDORSE TO DAY SHIFT FOR TAO.
--- NOTE | 2017-12-29 07:20 | NUR ---
MSRN OPENING NOTES. PT RECEIVED A&0X3, AWAKE AND WATCHING TV. PT TOLERATING ROOM AIR AND DENIES SOB. PT DENIES PAIN AT THIS TIME. PT WITH IVC AT L HAND G#22 INTACT AND SALINE FLUSH PATENT. BED IN LOWEST LOCKED POSITION WITH HANDRAILSX2 AND CALL VILLALPANDO WITHIN REACH, BED ALARM ENGAGED. PT BRIEFED ON TODAY'S POC AND IS WITHOUT CONCERN OR COMPLAINT AT THIS TIME.
[2017-12-29 08:00] VITALS: BP 131/90
[2017-12-29] MEDS: CLOPIDOGREL BISULFATE 75 MG TABLET PO SCH (08:09)
[2017-12-29] MEDS: FUROSEMIDE 40 MG TABLET PO SCH (08:09)
[2017-12-29] MEDS: busPIRone 5 MG TABLET PO SCH (08:10)
[2017-12-29] MEDS: FOLIC ACID 1 MG TABLET PO SCH (08:10)
[2017-12-29 08:11] VITALS: BP 131/90
[2017-12-29] MEDS: CARVEDILOL 3.125 MG TABLET PO SCH (08:11)
[2017-12-29] MEDS: PANTOPRAZOLE 40 MG TABLET.DR PO SCH (08:11)
[2017-12-29] MEDS: ASPIRIN EC 81 MG TABLET.DR PO SCH (08:11)
[2017-12-29] MEDS: LOSARTAN POTASSIUM 50 MG TABLET PO SCH (08:11)
[2017-12-29] MEDS: POTASSIUM CHLORIDE 20 MEQ TAB.PRT.SR PO SCH (08:12)
[2017-12-29] MEDS: ENOXAPARIN SODIUM 40 MG/0.4 ML DISP.SYRIN SQ SCH (08:13)
[2017-12-29 08:19] LABS: BASOPHILS % (AUTO) 0.1 % (0.0-2.0); EOSINOPHILS % (AUTO) 3.2 % (0.0-6.0); HEMATOCRIT 35 % (39-51); HEMOGLOBIN 11.1 g/dL (13.5-17.5); LYMPHOCYTES # (AUTO) 2.1 /CMM (0.8-4.8); LYMPHOCYTES % (AUTO) 29.8 % (20.0-44.0); MEAN CORPUSCULAR HGB CONC 32 g/dl (31.0-36.0); MEAN CORPUSCULAR VOLUME 76 fL (80-96); MONOCYTES # (AUTO) 0.8 /CMM (0.1-1.30); NEUTROPHILS # (AUTO) 3.8 /CMM (1.8-8.9); NEUTROPHILS % (AUTO) 54.9 % (43.0-81.0); PLATELET COUNT (AUTO) 313 /CMM (150-450); RDW COEFFICIENT OF VARIATION 16.1 (11.5-15.0); RED BLOOD CELL COUNT(AUTO) 4.61 MIL/uL (4.5-6.0); WHITE BLOOD COUNT (AUTO) 6.9 K/uL (4.3-11.0)
[2017-12-29 08:39] LABS: CALCIUM, SERUM 8.2 mg/dL (8.5-10.1); CREATININE 1.1 mg/dL (0.6-1.3); MAGNESIUM 2.2 mg/dL (1.8-2.4); PHOSPHORUS 3.5 mg/dL (2.5-4.9); POTASSIUM 3.8 mmol/L (3.5-5.1)
--- NOTE | 2017-12-29 11:47 | NUR ---
MSRN DC NOTES. PT PREPARED FOR DC PER . PT ENDORSED TO JUAN JEAN AT [facility]. PT TOLERATING ROOM AIR WITHOUT SOB OR RESP DISTRESS. PT DENIES PAIN. PT IVC REMOVED FROM L HAND AND NAD AT SITE. PT SKIN REMAINS INTACT. PT AWARE OF NEED TO MAKE FOLLOW UP APPOINTMENT WITH GI AND PROVIDED CONTACT DETAILS AND INSTRUCTIONS, PT VERBALIZING UNDERSTANDING AT THIS TIME. PT BRIEFED ON [facility] D/C PACKET, RESULTS AND FOLLOW UP PLANS AND IS VERBALIZING UNDERSTANDING INTENT AND RESOURCES TO FOLLOW POC. PT WITH ALL BELONGINGS AND DOCUMENT SIGNED. PT MEDS RETRIEVED FROM PHARMACY, CHECKED WITH PT AND PROVIDED TO EMT WITH D/C PACKET FOR TRANSPORT. PT ROOM CHECKED AGAIN FOR FORGOTTEN VALUABLES AT EXIT. PT TRANSPORT WITH EMT CREW VIA GURNEY. PT LEFT WITHOUT CONCERN OR COMPLAINT.
== END 2017-12-29 10:30 | DRG 291 ==
LOC: ER 12:11 → EDBD 12:11 → TELE 14:39 → MED 12-23 09:04
PROVIDERS: ADMIT Nurse Practitioner Acute Care; ATTEND Nurse Practitioner Acute Care
DX: I11.0 Hypertensive heart disease with heart failure (principal); J96.01 Acute respiratory failure with hypoxia; I27.20 Pulmonary hypertension, unspecified; E11.9 Type 2 diabetes mellitus without complications; D50.9 Iron deficiency anemia, unspecified; E78.5 Hyperlipidemia, unspecified; E87.6 Hypokalemia; J44.9 Chronic obstructive pulmonary disease, unspecified; I50.23 Acute on chronic systolic (congestive) heart failure; Z95.810 Presence of automatic (implantable) cardiac defibrillator; F41.9 Anxiety disorder, unspecified; Z79.82 Long term (current) use of aspirin; Z79.899 Other long term (current) drug therapy; Z79.84 Long term (current) use of oral hypoglycemic drugs; M19.90 Unspecified osteoarthritis, unspecified site; Z79.4 Long term (current) use of insulin; F32.9 Major depressive disorder, single episode, unspecified
CPT/HCPCS: 36415; 71045-TC; 80048-TC; 80053-TC; 80061-TC; 80076-TC; 82272-TC; 82306; 82728-TC; 83540-TC; 83605-TC; 83735-TC; 83880; 84100-TC; 84439-TC; 84443-TC; 84484-TC; 85025-TC; 85730-TC; 87040-TC; 87081-TC; 93307-TC; 94799-TC; A4216; A4606; A6402; C9113; J1650; J1940; J2916; J3490; J7030; J7050; Z7610